=== PATIENT | female | born 1960 ===

== ENCOUNTER 2020-05-15 16:33 | Emergency (ER) | payer OTHER, SELFPAY ==
[2020-05-15] VITALS (7 sets, daily range): BP systolic 97–121; BP diastolic 59–71; PULSE 66–71; RESP 14–17; TEMP 36.9; O2SAT 87–99; BMI 27.4
--- NOTE | 2020-05-15 | XR_ITS ---
EXAMINATION: XR SHOULDER, LEFT CLINICAL INFORMATION: Shoulder pain COMPARISON: 12/12/2009 TECHNIQUE: Four views of the left shoulder. FINDINGS: There is a fracture of the humeral neck with superior subluxation of the distal fracture fragment along with lateral angulation. The humeral head appears to be seated in the glenoid without dislocation. No other fractures are seen. XR/XR shoulder LT min 2V IMPRESSION: Acute fracture of the left humeral neck as described above
--- NOTE | 2020-05-15 16:53 | ED_ITS ---
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) Pain Consistency: constant Location: left and upper extremity Severity scale (1-10): 10 Quality: stabbing and aching Radiation: proximal Relieving factors: nothing Exacerbating factors: nothing Associated symptoms: denies other symptoms Context: other (slipped on the stairs while shoveling and hit her L shoulder when she fell, no other injuries, no LOC, did not strike head, R hand dominant) Related Data Previous Rx's Medication Instructions Recorded meclizine 25 mg PO TID PRN #30 tab 05/15/20 ondansetron 4 mg PO Q8H PRN #20 tab 05/15/20 oxycodone 5 mg PO Q4H PRN #30 tab 05/15/20 Allergies Allergy/AdvReac Type Severity Reaction Status Date / Time No Known Allergies Allergy Verified 05/15/20 17:12 Review of Systems Review of Systems: Constitutional : No Fever, No Chills ENT/Mouth : No Ear Pain, No Hoarseness, No sore throat Eyes: No Eye Pain, No Swelling, No Redness, No Foreign Body Cardiovascular : No Chest Pain, No SOB Respiratory : No Cough, No Dyspnea Gastrointestinal : No Nausea, No Vomiting, No Diarrhea, No abdominal Pain Genitourinary : No Dysuria, No Hematuria Musculoskeletal : positive joint pain, No Myalgias, No Joint Swelling Skin : No Skin lacerations, No rash Neuro : No Weakness, No Numbness, No Loss of Consciousness, No Dizziness, No Headache Psych : No Anxiety/Panic, No Depression Heme/Lymph: no easy bruising, no Lymphadenopathy Endocrine : No Polyuria, No Polydipsia All other systems reviewed and are negative PMFSH Past Medical History Attestation statement: The following information was validated with the patient. Medical History No active medical problems Social History Social History (Updated 05/15/20 @ 17:05 by Gabby Cochran DO) Smoking Status: Never smoker Use of substances other than those prescribed or required for medical reasons: No Advance Directives: No Advance Directives Information Provided: No Physical Exam Vital Signs: Vital Signs: Last Vital Signs Temp 98.4 F 05/15/20 17:08 Pulse 69 05/15/20 17:08 Resp 17 05/15/20 17:08 BP 121/71 05/15/20 17:08 Pulse Ox 99 05/15/20 17:08 Body Mass Index 27.4 Appearance: Alert. Oriented X3. No acute distress. Eyes: Pupils equal, round and reactive to light. ENT: Pharynx normal. Neck: Normal inspection. Neck supple. no midline ttp CVS: Normal heart rate and rhythm. Pulses normal. Respiratory: No respiratory distress. Breath sounds normal. Abdomen: Soft and non-tender. Skin: Skin warm and dry. Normal skin color. Normal skin turgor. Extremities: No lower extremity edema. No calf ttp L shoulder swelling around L prox humerus, moderate ttp, distal 2+ radial pulse, BCR in all digits, SILT intact throughout Neuro: Oriented X 3. No motor deficit. No sensory deficit. Course Course Course Narrative: pain stable - patient able to follow up as outpatient the fracture and clinical exam has improved after the patient allowed her upper arm to hang in the sling on xray she was holding her arm up quite high on her c hest and this was likely causing her significant displacement, will repeat xray Procedures Orthopedic Splinting/Casting Injury #1: Side: left Upper Extremity Injury Location: shoulder Upper Extremity Immobilizer: sling/shoulder immobilizer MDM - Extremity (Nontraumatic) MDM Narrative Medical decision making narrative: mechanical fall injury isolated to L shoulder - NV intact, suspect fracture, no other injuries no head or neck injuries - sling, xray, pain control Discharge Plan Discharge Clinical Impression: Fracture, humerus Qualifiers: Encounter type: initial encounter Humerus Location: proximal Fracture type: closed Fracture morphology: other fracture Fracture alignment: displaced Laterality: left Qualified Code(s): S42.292A - Other displaced fracture of upper end of left humerus, initial encounter for closed fracture Patient Disposition: Home, Self-Care Instructions: Arm Fracture in Adults (ED) Additional Instructions: return to ED for any worsening symptoms or concerns wear sling until released Prescriptions: New ondansetron 4 mg tablet,disintegrating 4 mg PO Q8H PRN (Reason: nausea and vomiting) Qty: 20 RF: 0 oxycodone 5 mg tablet 5 mg PO Q4H PRN (Reason: pain) Qty: 30 RF: 0 meclizine 25 mg tablet 25 mg PO TID PRN (Reason: dizziness) Qty: 30 RF: 0 Referrals: Carol Taylor PA-C [Physician Counseling Services Director] - 1 week (call for appointment next week) Stand Alone Forms: Work/School Release
[2020-05-15] MEDS: HYDROmorphone HCl 2 MG/ML VIAL IM (17:13)
--- NOTE | 2020-05-15 17:32 | XR_ITS ---
EXAMINATION: XR SHOULDER, LEFT CLINICAL INFORMATION: Post laying and repositioning of bone fragment COMPARISON: Shoulder radiographs earlier today TECHNIQUE: Single portable AP film of the left shoulder. FINDINGS: Alignment of the fracture is significantly improved since the prior study with no significant proximal subluxation. XR/XR shoulder LT 1V IMPRESSION: Single view demonstrates good approximation of fracture fragments status post repositioning and sling.
--- NOTE | 2020-05-15 18:05 | PC.NURSE ---
PT VERY SLEEPY FROM MEDICATION. WILL RECHECK PATIENT TO SEE WHEN SHE IS READY FOR DISCHARGE.
--- NOTE | 2020-05-15 18:28 | PC.NURSE ---
DR ROLLINS AWARE THAT O2 SAT DROPPING WHEN PT ASLEEP. WILL MONITOR UNTIL MORE AWAKE. UPDATED.
--- NOTE | 2020-05-15 18:45 | PC.NURSE ---
O22L APPLIED TO MAINTAIN SAT WHILE PT SLEEPING. WAITING FOR PT TO BE MORE AWAKE.
--- NOTE | 2020-05-15 20:37 | PC.NURSE ---
DR ROLLINS AWARE THAT PATIENTS O2 IS STILL DROPPING TO 87-88 ON ROOM AIR WHEN SHE IS SLEEPING. CONTINUE TO MONITOR PATIENT UNTIL MORE AWAKE. O22L REMAINS ON WHILE MONITORING PATIENT.
== END 2020-05-15 21:45 | disposition home or self-care (01) ==
LOC: HO.ED 17:31
PROVIDERS: Emergency Provider Emergency Medicine; PCP Nurse Practitioner Family
DX: S42.292A Other displaced fracture of upper end of left humerus, initial encounter for closed fracture (principal); M25.512 Pain in left shoulder; W00.0XXA Fall on same level due to ice and snow, initial encounter; Y93.H1 Activity, digging, shoveling and raking; Y92.481 Parking lot as the place of occurrence of the external cause; Y99.9 Unspecified external cause status; Z79.899 Other long term (current) drug therapy
CPT/HCPCS: 29105; 73020; 73030; 96372; 99284; J1170

== ENCOUNTER 2020-05-21 10:58 | Outpatient (REF) | payer OTHER, SELFPAY ==
--- NOTE | 2020-05-21 13:27 | XR_ITS ---
EXAMINATION: XR SHOULDER, LEFT CLINICAL INFORMATION: Fracture COMPARISON: Previous x-ray 05/15/2020 TECHNIQUE: 2 of the left shoulder. FINDINGS: There is a comminuted left humeral neck fracture. There is impaction and lateral and anterior displacement of the humeral shaft with respect to the humeral neck. There are degenerative changes of the glenohumeral and acromioclavicular joints. There is overlying soft tissue swelling. XR/XR shoulder LT min 2V IMPRESSION: Comminuted impacted displaced left humeral neck fracture.
== END 2020-05-21 10:59 | disposition home or self-care (01) ==
LOC: HO.HOSX 10:58
PROVIDERS: Visit Provider Physician Assistant
DX: S42.202A Unspecified fracture of upper end of left humerus, initial encounter for closed fracture (principal)
CPT/HCPCS: 73030

== ENCOUNTER 2020-06-25 12:29 | Outpatient (REF) | payer OTHER, SELFPAY ==
--- NOTE | 2020-06-25 13:33 | XR_ITS ---
EXAMINATION: XR SHOULDER, LEFT CLINICAL INFORMATION: Fracture, follow-up. COMPARISON: Radiographs left shoulder 05/21/2020, 05/15/2020 TECHNIQUE: Left shoulder is imaged in frontal and lateral views. FINDINGS: There is a fracture surgical neck proximal humerus. Alignment is similar to prior study with impaction, mild lateral displacement distal fragment, and is varus angulation distal fragment. Fracture line is still visible. There is some callus and ossification noted at the medial and lateral sides of the fracture site. No destructive process. XR/XR shoulder LT min 2V IMPRESSION: Healing fracture proximal left humerus. No change in alignment.
== END 2020-06-25 12:30 | disposition home or self-care (01) ==
LOC: HO.HOSX 12:29
PROVIDERS: Visit Provider Physician Assistant
DX: S42.202D Unspecified fracture of upper end of left humerus, subsequent encounter for fracture with routine healing (principal)
CPT/HCPCS: 73030

== ENCOUNTER 2020-08-06 08:30 | Outpatient (REF) | payer OTHER, SELFPAY ==
--- NOTE | ~2020-08-06 | XR_ITS ---
EXAMINATION: XR SHOULDER, LEFT CLINICAL INFORMATION: Follow-up left humeral fracture. COMPARISON: Left shoulder 06/25/2020 and 05/21/2020. TECHNIQUE: AP external rotation, Grashey, scapular Y, and axillary views of the left shoulder. FINDINGS: There is slowly healing left humeral neck fracture with medial angulation of the proximal fragment. The fracture line is still visualized. There is loss of joint space with periarticular spurring consistent with degenerative arthritic changes. The soft tissues are normal. XR/XR shoulder LT min 2V IMPRESSION: Very slow healing fracture with fracture line still visualized. There is medial angulation of proximal humerus. There are degenerative arthritic changes left shoulder joint.
== END 2020-08-06 08:31 | disposition home or self-care (01) ==
LOC: HO.HOSX 08:30
PROVIDERS: Visit Provider Physician Assistant
DX: S42.209D Unspecified fracture of upper end of unspecified humerus, subsequent encounter for fracture with routine healing (principal)
CPT/HCPCS: 73030

== ENCOUNTER 2020-09-10 11:00 | Outpatient (RCR) | payer OTHER, SELFPAY ==
--- NOTE | 2020-07-10 15:43 | MHC.PT.EP ---
[facility] [place] Office [place] Office [place] Office [address] Awais Arechiga [address] [phone] F: [phone] F: [phone] F: [phone] F: [phone] Physical Therapy Plan of Care Date of Evaluation: 07/10/20 Date of Surgery: Diagnosis: LEFT PROX Assessment: 59 YO FEMALE REF TO PT W DX LEFT PROXIMAL HUMERAL FRACTURE SUSTAINED AFTER A FALL 05/15/21- SHE WAS IN A SLING UNTIL 06/25/20 (ONLY USING SLING AT NIGHT). 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 Pt HAS LIMITED ROM Lt SH, LACKS TERMINAL Lt ELBOW EXT, DECR POSTURAL AWARENESS, (+) SOFT TISSUE IRRIT CERVICOTHOR PS MM, AND PAIN IN Lt SH W ROM. FUNCTIONALLY, Pt RECENTLY OUT OF SLING DURING THE DAY, SHE IS LIMITED W ALL ADLs, USING RIGHT UE PREDOMINANTLY. 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 Pt WOULD BENEFIT FROM PT TO ADDRESS THE ABOVE DEFICITS AND ASSIST HER IN REGAINING ROM, STRENGTH, AND GRAD RETURN TO REGULAR ADLs/ WORK. Frequency and Duration: The patient will be seen 2xWK x 5 WKS Short Term Goals: Pt DEMON FULL Lt ELBOW EXTEN AND IMPROVED ROM Lt SH AND INDEP SELF-POSTURAL CORRECTION IN 2 WKS Pt REPORTS PAIN DECR TO 2-3/10 IN Lt SH AND RESOLVED IN PARASCAP REGION IN 2 WKS Care Home Goals: Pt INDEP W HEP AND SELF SX MGMT, DEMON WFL AROM AND STRENGTH IN Lt SH/UE IN 5 WKS Pt RESUME REG ADLs EVIDENT W IMPROVED SPADI SCORE BY 20 POINTS (107/130) IN 5 WKS Treatment Plan: Modalities to reduce pain, spasms and effusion. Manual therapy to restore motion and function. Therapeutic exercise to improve strength and flexibility. Neuromuscular re-education for posture and balance. Therapeutic activities to return to functional activities of daily living. Electronically signed by: Niyah Turner, PT Please sign and return to therapist. Thank you for your referral.
--- NOTE | 2020-09-19 13:13 | MHC.PT.DC ---
[facility] [place] Office [place] Office [place] Office [address] Awais Arechiga [address] [phone] F: [phone] F: [phone] F: [phone] F: [phone] Physical Therapy Discharge Report Diagnosis: LEFT PROX Date of Surgery: Date of Evaluation: 07/10/20 Date of Discharge: 09/18/20 Treatments to Date: 7 Cancellations to Date: 3 No Shows to Date: 2 Discharge Status: Achieved Goals Improved Function Independent with HEP Patient Elected to Stop Discharge Summary: Pt HAS PROGRESSED W PT EVIDENT W IMPROVED AROM AND STRENGTH IN Lt UE- INCR FUNCT MOB JAMILA, SHE HAS MILD TIGHTNESS IN Lt PECT- SHE REMAINS MOTIV W HEP AND PROGRESSIONS AT THIS TIME. Electronically signed by: Niyah Turner, PT Please sign and return to therapist. Thank you for your referral.
== END 2020-09-19 13:15 | disposition other institution (70) ==
LOC: HO.PTCHIC 11:00
PROVIDERS: PCP Nurse Practitioner Family; Visit Provider Physician Assistant
DX: S42.209A Unspecified fracture of upper end of unspecified humerus, initial encounter for closed fracture (principal)
CPT/HCPCS: 97110; 97140; 97162

== ENCOUNTER 2020-10-01 08:13 | Outpatient (REF) | payer OTHER, SELFPAY ==
--- NOTE | ~2020-10-01 | XR_ITS ---
EXAMINATION: XR SHOULDER, LEFT CLINICAL INFORMATION: Pain left shoulder. COMPARISON: Left shoulder 08/06/2020. TECHNIQUE: AP external rotation, Grashey, scapular Y, and axillary views of the left shoulder. FINDINGS: There is old partially healed fracture left humeral neck with medial angulation. There is loss of glenohumeral joint space with moderate periarticular spurring. There is inferior acromial spurring as well. XR/XR shoulder LT min 2V IMPRESSION: Partially healed left humeral neck fracture with medial angulation. Advanced degenerative changes left glenohumeral joint. Small inferior acromial spur.
== END 2020-10-01 08:14 | disposition home or self-care (01) ==
LOC: HO.HOSX 08:13
PROVIDERS: Visit Provider Physician Assistant
DX: M25.512 Pain in left shoulder (principal); S42.202D Unspecified fracture of upper end of left humerus, subsequent encounter for fracture with routine healing; X58.XXXD Exposure to other specified factors, subsequent encounter; I10 Essential (primary) hypertension; E78.5 Hyperlipidemia, unspecified
CPT/HCPCS: 73030

== ENCOUNTER 2021-08-10 14:21 | Emergency (ER) | payer OTHER, SELFPAY ==
--- NOTE | ~2021-08-10 | CT_ITS ---
EXAMINATION: CT HEAD WITHOUT CONTRAST CLINICAL INFORMATION: Facial injury, COMPARISON: Facial bone CT from the same day. TECHNIQUE: Contiguous axial imaging was performed from the skull base to vertex without intravenous administration of contrast. This CT examination was performed using dose optimization techniques as appropriate, variously including the following: *Automated exposure control *Adjustment of mA and/or kV according to patient size (this includes techniques or standardized protocols for targeted exams where dose is matched to indication/reason for exam; i.e. extremities or head) *Use of iterative reconstruction technique DLP: 728 mGy-cm FINDINGS: There is no evidence of an extra-axial collection. There is no evidence for intra-axial or extra-axial hemorrhage. The ventricles and extra-axial CSF spaces are appropriate. Russell-white matter differentiation is normal. There is a partially calcified extra-axial mass adjacent to the left sphenoid bone measuring approximately 7 x 12 mm probably representing a meningioma. No other mass or mass effect is seen. There is a comminuted depressed fracture of the left orbital floor. There is blood in the left maxillary sinus. There is left orbital preseptal and postseptal emphysema. There are bilateral nasal bone fractures of uncertain age. No other fracture is seen. CT/CT head/brain wo con IMPRESSION: No acute intracranial pathology. 7 x 12 mm partially calcified extra-axial soft tissue mass adjacent to the left sphenoid bone probably representing a meningioma. Comminuted depressed left orbital floor fracture, blood in the left maxillary sinus and left orbital emphysema. Bilateral nasal bone fractures of uncertain age.
--- NOTE | ~2021-08-10 | CT_ITS ---
EXAMINATION: CT FACIAL BONES WITHOUT CONTRAST CLINICAL INFORMATION: Fall. Facial injury. COMPARISON: Head CT from the same day TECHNIQUE: Axial images through the facial bones without contrast. Sagittal and coronal reconstructions on the technologist workstation were performed. This CT examination was performed using dose optimization techniques as appropriate, variously including the following: *Automated exposure control *Adjustment of mA and/or kV according to patient size (this includes techniques or standardized protocols for targeted exams where dose is matched to indication/reason for exam; i.e. extremities or head) *Use of iterative reconstruction technique DLP: 283 mGy-cm FINDINGS: There is a comminuted depressed fracture of the floor of the left orbit. Fracture fragment depression measures maximum 1 cm. There is no evidence of entrapment. There is increased soft tissue in the left maxillary sinus probably representing blood. No other fracture is seen. The paranasal sinuses are otherwise clear. There is soft tissue swelling over the left orbit and pre- and postseptal air. The eyeballs are normal-appearing. The temporomandibular joints are normal. Mastoid air cells and middle ears are clear. CT/CT facial bones wo con IMPRESSION: Comminuted depressed fracture of the floor of the left orbit. No evidence of entrapment. Pre- and postseptal left orbital emphysema.
[2021-08-10 15:40] VITALS: BP 145/76; PULSE 64; RESP 18; TEMP 37.1; O2SAT 98; BMI 29.2
== END 2021-08-10 21:15 | disposition left against medical advice (07) ==
PROVIDERS: Emergency Provider Emergency Medicine; PCP Nurse Practitioner Family
DX: S02.32XA Fracture of orbital floor, left side, initial encounter for closed fracture (principal); W19.XXXA Unspecified fall, initial encounter; H05.89 Other disorders of orbit; I10 Essential (primary) hypertension; E78.5 Hyperlipidemia, unspecified; Y93.9 Activity, unspecified; Y92.9 Unspecified place or not applicable; Y99.9 Unspecified external cause status
CPT/HCPCS: 70450; 70486; 99282; 99284

== ENCOUNTER 2021-08-12 12:01 | Emergency (ER) | payer OTHER, SELFPAY ==
[2021-08-12 12:38] VITALS: BP 178/77; PULSE 73; RESP 18; TEMP 36.8; O2SAT 98; BMI 29.0
--- NOTE | 2021-08-12 13:31 | ED.GENADULT ---
HPI - General Adult General Chief complaint: Eye Problems Stated complaint: follow-up Time Seen by Provider: 08/12/21 12:52 Source: patient and family (Daughter) Mode of arrival: ambulatory Limitations: no limitations History of Present Illness HPI narrative: 60 years old female came in for evaluation after abnormal facial CT was done on 08/10/2021. Patient presented to the emergency department after sustained a fall, patient had CT head/CT facial bone but patient left before treatment and evaluation in the emergency department. Patient was called from her PCP to return to the emergency department for further evaluation because she has a left orbital floor fracture. Patient decline headache, no nausea, no vomiting, no double vision. Just mild blurry vision on the left thigh. Related Data Home Medications Medication Instructions Recorded Confirmed atenolol 50 mg tablet 50 mg PO DAILY 05/21/20 atorvastatin 10 mg tablet (Lipitor) 10 mg PO BEDTIME 05/21/20 citalopram 10 mg tablet 10 mg PO DAILY 05/21/20 omeprazole 20 mg capsule,delayed 20 mg PO DAILY 05/21/20 release Previous Rx's Medication Instructions Recorded ondansetron 4 mg disintegrating 4 mg PO Q8H PRN #20 tab 05/15/20 tablet oxycodone 5 mg tablet 5 mg PO Q4H PRN #30 tab 05/15/20 amoxicillin 875 mg-potassium 1 tab PO BID #10 tab 08/12/21 clavulanate 125 mg tablet Allergies Allergy/AdvReac Type Severity Reaction Status Date / Time No Known Allergies Allergy Verified 08/06/20 14:51 Review of Systems Review of Systems: All other systems are reviewed and are negative Constitutional: Reports as per HPI and Reports no additional constitutional complaints Eyes: Reports as per HPI and Reports no additional eye complaints Reports system reviewed and no additional complaints, except as documented Cardiovascular: Reports as per HPI and Reports no additional cardiovascular complaints Respiratory: Reports as per HPI and Reports no additional respiratory complaints Gastrointestinal: Reports as per HPI and Reports no additional gastrointestinal complaints Genitourinary: Reports no additional female genitourinary complaints Musculoskeletal: Reports no additional musculoskeletal complaints Skin/Breast: Reports system reviewed and no additional complaints, except as docu Psychiatric: Reports no additional psychiatric complaints Endocrine: Reports no additional endocrine complaints Hematologic/Lymphatic: Reports no additional hematologic/lymphatic complaints Allergic/Immunologic: Reports no additional allergic/immunologic complaints Reports system reviewed and no additional complaints, except as documented and Reports Abnormal speech present [facility] Past Medical History Medical History HTN (hypertension) Hyperlipidemia No active medical problems Social History Social History Alcohol intake: current Alcohol type: wine Advance Directives: No Advance Directives Information Provided: Yes 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 Blood pressure normal. Heart rate normal. Respiration rate normal. Temperature normal. Oxygen saturation normal. Appearance: Alert. Oriented X3. No acute distress. Head: Normal external exam. Normocephalic. Atraumatic. No Joshua signs noted. No raccoon eyes noted Eyes: PERRLA. EOMI. Left subconjunctival hemorrhage on the temporal aspect of the left eye, no blood in the AC, no diplopia, mild tenderness in the left infraorbital area, mild ecchymosis in the left infraorbital area. VA left eye 20/40, right eye 20/20. ENT: TM's Normal. Pharynx normal. Uvula midline. Moist mucous membranes. No trismus noted. No drooling noted. No muffled voice noted. Neck: Normal inspection. Neck supple. FROM. No adenopathy. Thyroid Normal. No meningeal signs. No neck mass noted. CVS: Normal heart rate and rhythm. Heart sound normal. No murmurs noted. Pulses normal throughout. Respiratory: No respiratory distress. Painless inspiration. Breath sounds normal. No wheezes/rales/rhonchi noted. Chest nontender. No accessory muscle usage noted or decreased air movement noted. Abdomen: Soft and nontender. Bowel sounds normal in all 4 quadrants. No distention noted. No organomegaly noted. No visible injury noted. Back: No CVA tenderness. Full range of motion noted. Skin: Skin warm and dry. Normal skin color. Normal skin turgor. No rashes/lesions/lacerations noted. Extremities: No lower extremity edema. Extremities exhibit normal range of motion. Extremities nontender. Neuro: Oriented X 3. Cranial nerve exam: II-XII are grossly intact No motor deficit. No sensory deficit. Reflexes normal. Course Course Course Narrative: Assessment and plan. 60-year-old female status post fall with left inferior orbital floor fracture, patient left without treatment last visit to the emergency department, patient is now 4 days after the fall, will start the patient on Augmentin, and follow-up with home health clinical supervisor. Medical Decision Making Imaging Data Head/facial CT: Attestation: I personally reviewed and interpreted this imaging study as follows: Radiologist's impression: No acute intracranial pathology. 7 x 12 mm partially calcified extra-axial soft tissue mass adjacent to the left sphenoid bone probably representing a meningioma. Comminuted depressed left orbital floor fracture, blood in the left maxillary sinus and left orbital emphysema. Bilateral nasal bone fractures of uncertain age. Discharge Plan Discharge Clinical Impression: Subconjunctival hemorrhage, Fracture of inferior orbital wall Patient Disposition: Home, Self-Care Instructions: Facial Fracture (ED) Prescriptions: New amoxicillin-pot clavulanate 875-125 mg tablet 1 tab PO BID Qty: 10 0RF No Action ondansetron 4 mg tablet,disintegrating 4 mg PO Q8H PRN (Reason: nausea and vomiting) Qty: 20 0RF oxycodone 5 mg tablet 5 mg PO Q4H PRN (Reason: pain) Qty: 30 0RF Rx Instructions: fractured humerus Referrals: Ramo Portillo [Physician] - 2 days
[2021-08-12] MEDS: Amoxicillin/Potassium Clav 875 MG TABLET PO (14:00)
== END 2021-08-12 14:04 | disposition home or self-care (01) ==
PROVIDERS: Emergency Provider Emergency Medicine; PCP Nurse Practitioner Family
DX: S02.32XA Fracture of orbital floor, left side, initial encounter for closed fracture (principal); W01.10XA Fall on same level from slipping, tripping and stumbling with subsequent striking against unspecified object, initial encounter; Y93.9 Activity, unspecified; Y92.9 Unspecified place or not applicable; Y99.9 Unspecified external cause status; Z79.899 Other long term (current) drug therapy
CPT/HCPCS: 99283

== ENCOUNTER 2022-10-10 11:09 | Emergency (ER) | payer OTHER, SELFPAY ==
--- NOTE | ~2022-10-10 | XR_ITS ---
EXAMINATION: XR CHEST CLINICAL INFORMATION: Fall COMPARISON: None available. TECHNIQUE: 2 views of the chest were obtained. FINDINGS: No significant abnormality is noted involving the heart, lungs, mediastinum, bony thorax or soft tissues. There are degenerative changes of the spine. XR/XR chest 2V IMPRESSION: No evidence for acute disease in the chest.
--- NOTE | ~2022-10-10 | CT_ITS ---
EXAMINATION: Head, cervical spine and facial bone CT without IV contrast CLINICAL INFORMATION: Fall COMPARISON: Previous head CT July 2021 TECHNIQUE: Axial images through the head, cervical spine and facial bones without IV contrast. Sagittal and coronal reconstructions obtained on the technologist's workstation. This CT examination was performed using dose optimization techniques as appropriate, variously including the following: *Automated exposure control *Adjustment of mA and/or kV according to patient size (this includes techniques or standardized protocols for targeted exams where dose is matched to indication/reason for exam; i.e. extremities or head) *Use of iterative reconstruction technique DLP FINDINGS: Head CT: There is no evidence of an extra-axial collection. There is no evidence of intra or extra-axial hemorrhage. The ventricles and extra-axial CSF spaces are slightly prominent suggestive of mild generalized atrophy. There is a partially calcified extra-axial mass adjacent to the left sphenoid bone and brain stem that is stable and probably represents a small meningioma. No other mass, mass effect or infarct is seen. No skull fracture. Facial bone CT: There is extensive soft tissue swelling and air in the soft tissues over the left side of the face. There are bilateral nasal bone fractures. These are similar appearing to head CT July 2021 and may not be acute. There is a comminuted fracture of the floor of the left orbit. There is a 7 mm depression. This is similar to previous head CT July 2021 and may not be acute. No evidence of entrapment. No other fracture is seen. There is membranous soft tissue thickening seen in the bilateral maxillary sinuses. The orbits are normal. The temporomandibular joints are normal. Mastoid air cells and middle ears are clear. Cervical spine: There is mild 2 mm anterior subluxation of C4 with respect to C5 and C5 with respect to C6. Bone alignment is otherwise normal. No fracture or dislocation. There is degenerative spondylosis at CC 5 6 and C6-C7. There is degenerative disc disease at C6-C7. There is bilateral multilevel facet arthritis. Prevertebral soft tissues are normal. There is bilateral carotid calcification. The lung apices are clear. CT/CT cervical spine wo IV con IMPRESSION: Head CT: No acute findings. Stable probable small meningioma adjacent to the left side of the sphenoid bone. Facial bone CT: Comminuted depressed left orbital floor fracture. Bilateral nasal bone fractures. Both these findings appear similar to July 2021 exam and may not be acute. Extensive soft tissue swelling and air in the left side of the face. Cervical spine CT: Degenerative changes. No fracture or dislocation.
--- NOTE | 2022-10-10 11:32 | ED_ITS ---
HPI - General Adult General Chief complaint: Fall Stated complaint: 10/09 fall/ facial swelling Time Seen by Provider: 10/10/22 11:55 Source: patient and family Mode of arrival: ambulatory Limitations: no limitations History of Present Illness HPI narrative: 61 yo female with a PMH of a meningioma, left orbital fracture 1 year ago, hypertension, anxiety, depression, and GERD. She presented to the ED s/p fall last night with multiple missing teeth, swollen lips, swollen left cheek, a bruise under her left eye, and a headache. She rates her headache a 7/10, and it is primarily on the left side. She fell last night after a night of drinking. She believes she had about 3-4 glasses of wine last night which she says she typically does about 5x a week. She believes she fell forward onto her face after getting up from her recliner. She believes the fall happened around midnight, and then she believes she went into the shower sometime between midnight and 1 am, but she does not remember. She does not remember if she passed out, and she does not know how long she was on the floor for. She is having no acute vision changes, chest pain, SOB, back/neck pain, or other muscular symptoms. MD complaint: fall, facial trauma Onset (ago): hour(s) Location: head, face and mouth Severity: moderate Quality: aching Pain Consistency: constant Relieving factors: none Exacerbating factors: movement Associated symptoms: headaches Treatments prior to arrival: none Related Data Home Medications Medication Instructions Recorded Confirmed atenolol 50 mg tablet 50 mg PO DAILY 05/21/20 atorvastatin 10 mg tablet (Lipitor) 10 mg PO BEDTIME 05/21/20 citalopram 10 mg tablet 10 mg PO DAILY 05/21/20 omeprazole 20 mg capsule,delayed 20 mg PO DAILY 05/21/20 release Previous Rx's Medication Instructions Recorded ondansetron 4 mg disintegrating 4 mg PO Q8H PRN nausea and 05/15/20 tablet vomiting #20 tabs oxycodone 5 mg tablet 5 mg PO Q4H PRN pain #30 tabs 05/15/20 amoxicillin 875 mg-potassium 1 tab PO BID #10 tabs 08/12/21 clavulanate 125 mg tablet amoxicillin 875 mg-potassium 1 tab PO Q12H #20 tabs 10/10/22 clavulanate 125 mg tablet ibuprofen 600 mg tablet 600 mg PO Q8H PRN pain #20 tabs 10/10/22 Allergies Allergy/AdvReac Type Severity Reaction Status Date / Time No Known Allergies Allergy Verified 08/06/20 14:51 Review of Systems Review of Systems: Yes all other systems are reviewed and are negative [facility] Past Medical History Medical History HTN (hypertension) Hyperlipidemia No active medical problems Social History Social History Alcohol intake: current Alcohol type: wine Advance Directives: Yes Advance Directives Information Provided: No Advance Directives on File: No 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 Oriented X3. No acute distress. Head/face: significant left sided facial swelling, ecchymosis to the cheek and under the left eye. Eyes: Pupils equal, round and reactive to light. EOMI, no pain with extra occular movement. ENT: upper lip swollen with a deep 1.5 cm linear laceration does not involve lisseth border, multiple front teeth chipped and loose, Pharynx normal. No tonsillar swelling or exudate. normal ROM of the manidble, no malocclusion. Neck: Normal inspection. Neck supple. no midline tenderness CVS: Normal heart rate and rhythm. Pulses normal. Respiratory: No respiratory distress. Breath sounds normal. Abdomen: Soft and nontender. +BS x4 Skin: Skin warm and dry. Normal skin color. Normal skin turgor. No rashes. Extremities: No lower extremity edema. No joint swelling. Neuro/psych: Oriented X 3. No motor deficit. No sensory deficit. CN II-XII intact. Normal speech and cognition. Course Course Course Narrative: RME performed by Zoe Hernandez PA-C. Patient is a 61 year old assigned femal e at presenting to the emergency department with mouth and face pain after a fall. Patient states that she does not remember the moments leading up to the fall or the moments after. Patient states that she just woke up on the floor. Patient's teeth are chipped and she has an obvious left eye injury. Patient states that she has a previous orbital floor fracture on the left side from a previous fall. Patient denies any blood thinner use. Labs and imaging ordered. Patient placed back in the waiting room pending room availability and results. Medications Administered Discontinued Medications Generic Name Dose Route Start Last Admin Trade Name [place] PRN Reason Stop Dose Admin Acetaminophen 975 mg 10/10/22 12:52 10/10/22 13:10 Acetaminophen 325 Mg Tablet PO 10/10/22 12:53 975 mg ONCE ONE Administration Lidocaine HCl 5 ml 10/10/22 13:22 10/10/22 13:58 Lidocaine Hcl 1 % Mpf 5 Ml Vial SUBCUT 10/10/22 13:23 5 ml ONCE ONE Administration Procedures Laceration Laceration 1: Site: lip Size (cm): 1.5 Description: linear Depth: simple, single layer Local Anesthetic: lidocaine 1% Amount of anesthesia used (mL): 0.5 Skin layer closed with: other (polysirb) Size (cm): 4-0 Number of sutures: 2 Technique: simple, interrupted Medical Decision Making Medical Decision Making MDM Narrative: 61-year-old female with history of alcohol abuse and dependence, history of a fall with orbital floor fracture 1 year ago presents to the ER for evaluation of a unwitnessed fall at home a last night around midnight. She was intoxicated and does not remember the events. She presents today with left-sided facial swelling and bruising, chipped front teeth, and headache. She is neurologically intact. She has no diplopia, extraocular movements are intact and she has no pain with eye movements. EKG is unremarkable. Lab workup was unremarkable. Her CT scans did show that she has a left orbital depressed floor fracture, however it is unclear if this is new or old as the CT scans are similar to last year when she had the same injury. Case was discussed with Dr. Arnold. Will start the patient on Augmentin. Will have her follow-up with her ear nose and throat doctor who she saw last year for the same. We discussed alcohol cessation and she does not think she needs detox, she know she needs to cut back and will do so at home. At this time she is stable for discharge home with oral antibiotics, pain control, outpatient follow-up. All questions were answered. Stable for DC. Differential Diagnosis Differential Diagnoses: The differential diagnosis associated with the presentation includes Blow up fracture, orbital fracture, ICH last SH/epidural hematoma, dental trauma, syncope, alcohol intoxication, dehydration, anemia Admission/Observation Consideration of admission/observation: Escalation of care including admission/observation considered Lab Data MDM Lab Attestation statement: I reviewed the patient's lab results. 10/10/22 11:47 10/10/22 11:47 Labs: Lab Results 10/10/22 10/10/22 10/10/22 Range/Units 11:47 11:47 11:47 WBC 11.3 H (4.8-10.8) X10*3/uL RBC 4.12 L (4.20-5.50) X10*6/uL Hgb 13.2 (12.0-16.0) g/dl Hct 38.6 (37.0-47.0) % MCV 93.7 (80.0-98.0) fL MCH 32.0 (27.0-33.0) pg MCHC 34.2 (31.0-35.0) g/dl RDW 12.7 (11.0-16.0) % Plt Count 156 L (160-400) X10*3/uL MPV 9.2 L (9.4-12.3) fL Immature Gran % (Auto) 0.4 (0.0-0.4) % Neut % (Auto) 79.5 H (45-73) % Lymph % (Auto) 13.4 L (20-40) % Treasure % (Auto) 5.1 (2-11) % Eos % (Auto) 0.9 (0-4) % Baso % (Auto) 0.7 (0-2) % Lymph # (Auto) 1.5 (1.2-4.9) X10*3/uL Treasure # (Auto) 0.6 (0.1-1.2) X10*3/uL Eos # (Auto) 0.1 (0.0-0.4) X10*3/uL Baso # (Auto) 0.1 (0.0-0.2) X10*3/uL Abs Immat Gran (auto) 0.04 H (0.00-0.03) X10*3/uL Absolute Neuts (auto) 9.0 H (2.0-8.3) x10*3/uL Absolute Nucleated RBC 0.000 (0.0-0.012) X10*3/uL Nucleated RBC % (auto) 0.0 (0.0-0.2) /100WBC Sodium 141 (135-145) mmol/L Potassium 3.8 (3.3-5.1) mmol/L Chloride 104 (96-108) mmol/L Carbon Dioxide 23 (22-29) mmol/L Anion Gap 18 (12-20) BUN 11 (9-16) mg/dL Creatinine 0.90 (0.5-1.4) mg/dL Estim Creat Clear Calc 67.9 Estimated GFR > 60 Random Glucose 128 H (60-115) mg/dL Calcium 8.7 (8.4-10.2) mg/dL Magnesium 2.1 (1.6-2.6) mg/dL Total Bilirubin 1.1 H (0.0-1.0) mg/dL AST 117 H (5-31) U/L ALT 81 H (0-31) U/L Alkaline Phosphatase 82 (39-117) U/L Troponin I High Sens < 2.7 (<3.5-17.0) ng/L Total Protein 7.1 (6.5-8.0) g/dL Albumin 4.4 (3.5-5.0) g/dL Independent Interpretation I performed an independent interpretation of an: EKG and CT Scan Interpretation: EKG - normal sinus rhythm, HR 74 bpm, normal WI interval, normal QTC, no ST segment elevatios or depressions. cxr normal CT head/facial/bones - no stroke or ICH, no cervical injuries appreciated, left orbital floor fx, agree w/ radiology read Radiology Impression Discussion of test interpretation with radiology: I have reviewed the radiologist's reading. Radiologist Impression: CT/CT head/brain wo IV con IMPRESSION: Head CT: No acute findings. Stable probable small meningioma adjacent to the left side of the sphenoid bone. ? Facial bone CT: Comminuted depressed left orbital floor fracture. Bilateral nasal bone fractures. Both these findings appear similar to July 2021 exam and may not be acute. Extensive soft tissue swelling and air in the left side of the face. ? Cervical spine CT: Degenerative changes. No fracture or dislocation. XR/XR chest 2V IMPRESSION: No evidence for acute disease in the chest. Independent Historian Clinical information obtained from an independent historian. History obtained from or confirmed by: Spouse External Record Review External record reviewed: Office record, Outpatient record, Prior outpatient labs and Prior outpatient radiology Prescription Management I considered prescription management with: Pain Medication and Antibiotic Chronic Conditions Patient?s care impacted by: Other (alcohol abuse/dependence) Critical Care Time Critical Care Time Critical Care Time: No Discharge Plan Discharge Clinical Impression: Fracture of orbital floor Patient Disposition: Home, Self-Care Instructions: Facial Fracture (ED) Additional Instructions: Your CT scan findings were similar to last year, showing a left orbital floor fracture, this may or may not be new.. Your physical exam was reassuring. Treatment is antibiotics, pain control, management of swelling with ice. Recommend refraining from drinking alcohol. Recommend detox. Follow-up with your primary care doctor as well as your ear nose and throat doctor for further evaluation and follow-up and treatment. CT/CT head/brain wo IV con IMPRESSION: Head CT: No acute findings. Stable probable small meningioma adjacent to the left side of the sphenoid bone. ? Facial bone CT: Comminuted depressed left orbital floor fracture. Bilateral nasal bone fractures. Both these findings appear similar to July 2021 exam and may not be acute. Extensive soft tissue swelling and air in the left side of the face. ? Cervical spine CT: Degenerative changes. No fracture or dislocation. Prescriptions: New amoxicillin-pot clavulanate 875-125 mg tablet 1 tab PO Q12H Qty: 20 0RF ibuprofen 600 mg tablet 600 mg PO Q8H PRN (Reason: pain) Qty: 20 0RF No Action ondansetron 4 mg tablet,disintegrating 4 mg PO Q8H PRN (Reason: nausea and vomiting) Qty: 20 0RF oxycodone 5 mg tablet 5 mg PO Q4H PRN (Reason: pain) Qty: 30 0RF Rx Instructions: fractured humerus amoxicillin-pot clavulanate 875-125 mg tablet 1 tab PO BID Qty: 10 0RF Referrals: Peggy Reich, CARLOS EDUARDO [Primary Care Provider] - (CT/CT head/brain wo IV con IMPRESSION: Head CT: No acute findings. Stable probable small meningioma adjacent to the left side of the sphenoid bone. Facial bone CT: Comminuted depressed left orbital floor fracture. Bilateral nasal bone fractures. Both these findings appear similar to July 2021 exam and may not be acute. Extensive soft tissue swelling and air in the left side of the face. Cervical spine CT: Degenerative changes. No fracture or dislocation.)
--- NOTE | 2022-10-10 11:32 | ECG_ITS ---
Test Reason : fall Blood Pressure : / mmHG Vent. Rate : 074 BPM Atrial Rate : 074 BPM P-R Int : 178 ms QRS Dur : 082 ms QT Int : 396 ms P-R-T Axes : 012 -11 006 degrees QTc Int : 439 ms Normal sinus rhythm Minimal voltage criteria for LVH, may be normal variant ( R in aVL ) Borderline ECG No previous ECGs available Referred By: Zoe Hernandez Electronically Signed By:Mark Deshpande
[2022-10-10 11:33] VITALS: BP 100/70; PULSE 76; RESP 18; TEMP 35.9; O2SAT 100; BMI 27.4
[2022-10-10 11:52] LABS: MANUAL DIFF FLAG NO
[2022-10-10 11:53] LABS: Basophils Absolute Auto 0.1 X10*3/uL (0.0-0.2); Basophils Percent Auto 0.7 % (0-2); Eosinophils Absolute Auto 0.1 X10*3/uL (0.0-0.4); Eosinophils Percent Auto 0.9 % (0-4); Hematocrit 38.6 % (37.0-47.0); Hemoglobin 13.2 g/dl (12.0-16.0); Imm Gran Abs Auto 0.04 X10*3/uL (0.00-0.03); Imm Gran Pct Auto 0.4 % (0.0-0.4); Lymphocytes Absolute Auto 1.5 X10*3/uL (1.2-4.9); Lymphocytes Percent Auto 13.4 % (20-40); Mean Corpuscular HGB Conc 34.2 g/dl (31.0-35.0); Mean Corpuscular Volume 93.7 fL (80.0-98.0); Mean Platelet Volume 9.2 fL (9.4-12.3); Monocytes Absolute Auto 0.6 X10*3/uL (0.1-1.2); Monocytes Percent Auto 5.1 % (2-11); Neutrophils Percent Auto 79.5 % (45-73); Platelet Count 156 X10*3/uL (160-400); Red Blood Count 4.12 X10*6/uL (4.20-5.50); Red Cell Distribution Width 12.7 % (11.0-16.0); White Blood Count 11.3 X10*3/uL (4.8-10.8)
--- NOTE | 2022-10-10 11:57 | PC.NURSE ---
Patient states that last night she was laying in her recliner when she got up quickly and went to the kitchen where she ended up falling down and hitting her face. Patient has a bruise under her left eye and her left upper lip is cut and swollen. Approximately 1 year ago patient fell in the kitchen as she was bringing in a case of cat food and she slipped and hit her stove handle resulting in a broken jaw.
[2022-10-10 12:15] LABS: Alanine Aminotransferase 81 U/L (0-31); Albumin Level 4.4 g/dL (3.5-5.0); Alkaline Phosphatase 82 U/L (39-117); Anion Gap 18 (12-20); Aspartate Amino Transferase 117 U/L (5-31); Bilirubin Total 1.1 mg/dL (0.0-1.0); Blood Urea Nitrogen 11 mg/dL (9-16); Calcium 8.7 mg/dL (8.4-10.2); Carbon Dioxide 23 mmol/L (22-29); Chloride 104 mmol/L (96-108); Creatinine Clr Calc Pharmacy 67.9; Estimated Glomerular Filt Rate > 60; Glucose Random 128 mg/dL (60-115); Magnesium 2.1 mg/dL (1.6-2.6); Potassium 3.8 mmol/L (3.3-5.1); Sodium 141 mmol/L (135-145); Total Protein 7.1 g/dL (6.5-8.0)
[2022-10-10 12:19] LABS: Troponin-I High Sensitivity < 2.7 ng/L (<3.5-17.0)
[2022-10-10] MEDS: Acetaminophen 325 MG TABLET 975 MG PO (13:10)
[2022-10-10] MEDS: Lidocaine HCl 1 % MPF 5 ML VIAL SUBCUT (13:58)
[2022-10-10 14:55] VITALS: BP 109/63; PULSE 68; RESP 18; O2SAT 96
== END 2022-10-10 14:57 | disposition home or self-care (01) ==
PROVIDERS: Physician Assistant Medical; Emergency Provider Emergency Medicine; PCP Nurse Practitioner Family
DX: S01.511A Laceration without foreign body of lip, initial encounter (principal); R51.9 Headache, unspecified; M54.2 Cervicalgia; W01.10XA Fall on same level from slipping, tripping and stumbling with subsequent striking against unspecified object, initial encounter; R07.89 Other chest pain; Y93.9 Activity, unspecified; Y92.9 Unspecified place or not applicable; Y99.9 Unspecified external cause status; Z79.899 Other long term (current) drug therapy
CPT/HCPCS: 12011; 36415; 70450; 70486; 71046; 72125; 80053; 83735; 84484; 85025; 93005; 99284; 99285

== ENCOUNTER 2024-02-09 15:34 | Outpatient (AMB) | payer OTHER, SELFPAY ==
--- NOTE | 2024-02-09 16:00 | MHC.OFFWIV ---
Intake Vital Signs 02/09/24 16:02 Height 5 ft 6 in Weight 181 lb BMI 29.2 BP 126/82 Blood Pressure Location Rt brachial Position Sitting Pulse 77 Pulse Source Pulse Oximeter Temp 98.4 F Temp Source Oral Pulse Oximetry (%) 93 Oxygen Delivery Method Room Air Intake Visit Reasons: CONTINUOUS [employer]ESS [employer] numbness both arms/cyst RT?LT hand Intake Note: pt c/o bilateral arm numbness, cyst on RT and ? LT hand. Ongoing intermittently for 2 weeks. Has ganglion cyst. Patient Tobacco Use Status: Never used Tobacco Allergies No Known Allergies Allergy (Verified 02/09/24 16:01) Do you need a note to return to daycare/school/sports/work: No HPI HPI Comments History of Present Illness Details Patient is a 63-year-old female complaining of 2-3 weeks of bilateral arm numbness and tingling as well as a ganglion cyst on her right hand/wrist. She states the cyst was diagnosed by her former doctor but her insurance changed and she had to change PCPs. She has an appointment with Dr. Suero in May. She states she had issues with her carpal tunnel on the left side went to physical therapy and wore a brace and it improved, she stopped the job that she was doing and it has not returned. She is telling me the same type of pain started 2-3 weeks ago but it is in both hands now. She is retired, she is a right-handed person. 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 Review of Systems Const All systems reviewed & are unremarkable except as noted in HPI and below Physical Exam Vital Signs: Last Vital Signs Temp 98.4 F 02/09/24 16:02 Pulse 77 02/09/24 16:02 BP 126/82 02/09/24 16:02 Pulse Ox 93 02/09/24 16:02 Oxygen Delivery Method Room Air 02/09/24 16:02 BMI result Body Mass Index 29.2 Const General: cooperative, healthy appearing, comfortable, no acute distress and well developed Orientation/consciousness: patient oriented x3 Limitations: no limitations HEENT Head: Yes normal to inspection Ears: hearing grossly normal bilaterally General nose exam: Normal external nose present Face and sinus: Yes normal facial exam Eyes General: appearance normal, both eyes and all related structures Neck Neck: Yes normal visual inspection and Yes full ROM Resp Effort & Inspection: normal respiratory effort and able to speak in complete sentences Skin General skin exam: no rashes or lesions noted Neuro General: patient oriented x3 Extrem Other: + phalen's bilaterally General: Yes normal to inspection Right upper extremity: Extremity exam: right hand (Right hand has ganglion cyst on dorsal aspect of wrist) Details: normal capillary refill, neuromotor exam normal, tendon exam normal and no swelling; no tenderness Left upper extremity: hand (+ phalen's) Details: normal to inspection, normal capillary refill, neuromotor exam abnormal and normal ROM of fingers; no tenderness, no unusual warmth, no swelling, no abrasions and no lacerations Assessment & Plan Assessment & Plan (1) Ganglion cyst of tendon sheath of right hand: Code(s): M67.441 - Ganglion, right hand Plan: Sent referral to Orthopedics for the hand surgeon. (2) Carpal tunnel syndrome on both sides: Code(s): G56.03 - Carpal tunnel syndrome, bilateral upper limbs Plan: Patient has a brace at home for her left wrist but did not have 1 for her right wrist so we gave her 1 here today, recommended she wear them as much as possible and rest, use ice and NSAIDs. We will send referral to Orthopedics. Plan See above Orders: Referrals Orthopedics Referral G56.03 - Carpal tunnel syndrome, bilateral upper limbs, M67.441 - Ganglion, right hand Coding Level of Care Code Est Pt Level 4 (04184) Diagnoses Ganglion cyst of tendon sheath of right hand M67.441 Carpal tunnel syndrome on both sides G56.03
[2024-02-09 16:02] VITALS: BP 126/82; PULSE 77; TEMP 36.9; O2SAT 93; BMI 29.2
== END 2024-02-09 16:46 | disposition home or self-care (01) ==
PROVIDERS: PCP Nurse Practitioner Family; Visit Provider Physician Assistant
DX: M67.441 Ganglion, right hand (principal); G56.03 Carpal tunnel syndrome, bilateral upper limbs
CPT/HCPCS: 99214